=== PATIENT | male | born 1965 | race Caucasian/White ===

== ENCOUNTER 2016-08-25 17:24 | Inpatient (IN) | payer OTHER ==
[~2016-08-25] VITALS: Ht 193 cm; Wt 137.5 kg
[~2016-08-25 17:24] MED LIST: ANUCORT-HC25 MG PR; BENZONATATE100 MG PO; CENTRUM SILVER1 EAC3 PO; COLACE100 MG PO; IRON325 MG PO; LIBRIUM25 MG PO; METAMUCIL0.52 GM PO; NICOTINE PATCH1 EAC2 TD; PERMETHRIN60 GM TP
[2016-08-25 19:27] LABS: HEMATOCRIT 30.7 % (38.0-50.0); MCH 23.6 PG (29.0-34.0); MCHC 30.6 G/DL (30.0-36.0); MCV 76.9 FL (86-99); MEAN PLAT.VOLUME 9.9 uM^3 (9.0-12.4); PLATELET COUNT 219 K/uL (156-360); RBC DIS.WIDTH-CV 18.5 % (11.8-14.6); RBC DIS.WIDTH-SD 51.4 % (39-53); RED BLOOD COUNT 3.99 M/uL (4.00-5.50); WHITE BLOOD COUNT 5.3 K/uL (4.1-10.2)
[2016-08-25 19:36] LABS: CHLORIDE 105 mEq/L (99-109); POTASSIUM 3.7 mEq/L (3.7-5.4); SODIUM 142 mEq/L (136-147)
[2016-08-25 19:38] LABS: GLUCOSE 102 mg/dL (70-99)
[2016-08-25 19:39] LABS: ANION GAP 11 MEQ/L (2-14)
[2016-08-25 19:42] LABS: GFR ESTIMATE (CALCULATED) > 59 mL/min/
[2016-08-25 19:43] LABS: UREA NITROGEN (BUN) 11 mg/dL (9-23)
[2016-08-25 21:05] LABS: SERUM ETHYL ALCOHOL 110 mg/dL
[2016-08-26 08:04] LABS: HEMATOCRIT 33.7 % (38.0-50.0); MCH 23.2 PG (29.0-34.0); MCHC 30.6 G/DL (30.0-36.0); MCV 75.9 FL (86-99); MEAN PLAT.VOLUME 10.3 uM^3 (9.0-12.4); PLATELET COUNT 219 K/uL (156-360); RBC DIS.WIDTH-CV 18.2 % (11.8-14.6); RBC DIS.WIDTH-SD 50.1 % (39-53); RED BLOOD COUNT 4.44 M/uL (4.00-5.50); WHITE BLOOD COUNT 4.9 K/uL (4.1-10.2)
[2016-08-26 08:14] LABS: INTER. NORMALIZED RATIO 1.1; PROTHROMBIN TIME 11.1 (9.2-11.2); PTT 26.8 (25-32)
[2016-08-26 08:21] LABS: CHLORIDE 103 mEq/L (99-109); POTASSIUM 3.6 mEq/L (3.7-5.4); SODIUM 140 mEq/L (136-147)
[2016-08-26 08:23] LABS: GLUCOSE 111 mg/dL (70-99)
[2016-08-26 08:24] LABS: ANION GAP 10 MEQ/L (2-14)
[2016-08-26 08:25] LABS: TOTAL BILIRUBIN 0.7 mg/dL (0.0-1.0)
[2016-08-26 08:26] LABS: ALKALINE PHOSPHATASE 91 IU/L (3-129); GFR ESTIMATE (CALCULATED) > 59 mL/min/
[2016-08-26 08:28] LABS: UREA NITROGEN (BUN) 9 mg/dL (9-23)
[2016-08-26 14:54] VITALS: BP 158/115
[2016-08-26 20:00] VITALS: BP 134/97
[2016-08-27] VITALS: BP 143/88
[2016-08-27 04:00] VITALS: BP 133/73
[2016-08-27 07:09] LABS: HEMATOCRIT 34.3 % (38.0-50.0); MCH 23.2 PG (29.0-34.0); MCHC 30.6 G/DL (30.0-36.0); MCV 75.7 FL (86-99); MEAN PLAT.VOLUME 10.4 uM^3 (9.0-12.4); PLATELET COUNT 215 K/uL (156-360); RBC DIS.WIDTH-CV 17.3 % (11.8-14.6); RBC DIS.WIDTH-SD 47.6 % (39-53); RED BLOOD COUNT 4.53 M/uL (4.00-5.50); WHITE BLOOD COUNT 4.3 K/uL (4.1-10.2)
[2016-08-27 07:29] LABS: ANION GAP 10 MEQ/L (2-14); CHLORIDE 101 MEQ/L (99-109); GFR ESTIMATE (CALCULATED) > 59 mL/min/; GLUCOSE 100 mg/dL (70-99); MAGNESIUM 2.2 mg/dl (1.3-2.7); POTASSIUM 4.1 MEQ/L (3.7-5.4); SAMPLE HEMOLYSIS CHECK 0; SAMPLE ICTERIC CHECK 0; SAMPLE LIPEMIA CHECK 0; SODIUM 137 MEQ/L (136-147); UREA NITROGEN (BUN) 10 mg/dL (9-23)
[2016-08-27 08:09] VITALS: BP 142/95
[2016-08-27 12:13] VITALS: BP 130/97
[2016-08-27 16:11] VITALS: BP 128/88
[2016-08-27 19:59] VITALS: BP 124/92
[2016-08-27 22:30] LABS: INTERNAL CONTROL VALID? YES
[2016-08-28 00:43] VITALS: BP 123/83
[2016-08-28 03:53] VITALS: BP 134/88
[2016-08-28 07:48] VITALS: BP 128/80
[2016-08-28 12:47] VITALS: BP 129/84
[2016-08-28 20:19] VITALS: BP 123/90
[2016-08-29] VITALS: BP 134/96
[2016-08-29 08:02] VITALS: BP 131/94
[2016-08-29] MEDS ORDERED: CHLORDIAZEPOXID25 MG PO (09:39)
[2016-08-29] MEDS ORDERED: LIBRIUM25 MG PO (10:58)
[2016-08-29] MEDS ORDERED: ANUCORT-HC25 MG PR (11:07)
[2016-08-29] MEDS ORDERED: FOLIC ACID1 MG PO (11:07)
[2016-08-29] MEDS ORDERED: VITAMIN B-1100 MG PO (11:07)
[2016-08-29] MEDS ORDERED: LIDOCAINE700 MG TD (11:07)
[2016-08-29] MEDS ORDERED: PREPARATION H O28 GM PR (11:07)
[2016-08-29] MEDS ORDERED: NICOTINE PATCH1 EAC2 TD (11:07)
== END 2016-08-29 14:40 | disposition home or self-care (01) | DRG 897 ==
LOC: EME 17:24 → EDOF 08-26 04:03 → 5SOUTH 08-26 04:03
PROVIDERS: Internal Medicine
PROC: HZ2ZZZZ Detoxification Services for Substance Abuse Treatment (ICD-10-PCS; principal; 2016-08-26)
DX: F10.230 Alcohol dependence with withdrawal, uncomplicated (principal); Y90.5 Blood alcohol level of 100-119 mg/100 ml; K70.0 Alcoholic fatty liver; K64.8 Other hemorrhoids; D64.9 Anemia, unspecified; R00.0 Tachycardia, unspecified; E78.5 Hyperlipidemia, unspecified; I10 Essential (primary) hypertension; F32.9 Major depressive disorder, single episode, unspecified; F17.200 Nicotine dependence, unspecified, uncomplicated; G89.29 Other chronic pain; M54.5 Low back pain; J44.9 Chronic obstructive pulmonary disease, unspecified
CPT/HCPCS: 76705; 80048; 80053; 82272; 83735; 84100; 85027; 85610; 85730; 86900; 86901; 93005; 99281; 99285; G0480; J2060; J3411

== ENCOUNTER 2016-09-29 05:06 | Emergency (ER) | payer OTHER ==
[~2016-09-29] VITALS: Ht 193 cm; Wt 140.5 kg
[~2016-09-29 05:06] MED LIST changes: +CHLORDIAZEPOXID25 MG PO; +FOLIC ACID1 MG PO; +LIDOCAINE700 MG TD; +PREPARATION H O28 GM PR; +VITAMIN B-1100 MG PO
[2016-09-29 06:11] LABS: EOSINOPHIL (%) 3.7 % (0-5); EOSINOPHIL COUNT 0.2 K/uL (0-0.3); HEMATOCRIT 31.9 % (38.0-50.0); IMMATURE GRANULOCYTE (%) 0.2 % (0.0-0.7); LYMPHOCYTE COUNT 1.3 K/uL (1.0-2.8); MCH 22.7 PG (29.0-34.0); MCHC 29.8 G/DL (30.0-36.0); MCV 76.1 FL (86-99); MEAN PLAT.VOLUME 10.6 uM^3 (9.0-12.4); MONOCYTE (%) 13.2 % (3-12); MONOCYTE COUNT 0.5 K/uL (0-0.8); NEUTROPHIL (%) 49.9 % (45-76); PLATELET COUNT 199 K/uL (156-360); RBC DIS.WIDTH-CV 17.1 % (11.8-14.6); RBC DIS.WIDTH-SD 46.9 % (39-53); RED BLOOD COUNT 4.19 M/uL (4.00-5.50)
[2016-09-29 06:23] LABS: CHLORIDE 102 mEq/L (99-109); POTASSIUM 3.1 mEq/L (3.7-5.4); SODIUM 140 mEq/L (136-147)
[2016-09-29 06:24] LABS: GLUCOSE 117 mg/dL (70-99)
[2016-09-29 06:26] LABS: ANION GAP 12 MEQ/L (2-14)
[2016-09-29 06:28] LABS: GFR ESTIMATE (CALCULATED) > 59 mL/min/
[2016-09-29 06:29] LABS: UREA NITROGEN (BUN) 9 mg/dL (9-23)
[2016-09-29 06:33] LABS: TROP-I INTERPRETATION NEGATIVE; TROPONIN-I < 0.01 ng/mL (0.0-0.30)
[2016-09-29] MEDS ORDERED: LIBRIUM25 MG PO (07:26)
[2016-09-29 08:57] LABS: CREATINE KINASE 237 IU/L (1-294); TOTAL CK 237 IU/L (1-294)
[2016-09-29 09:04] LABS: TROP-I INTERPRETATION NEGATIVE; TROPONIN-I < 0.01 ng/mL (0.0-0.30)
[2016-09-29 09:08] LABS: CK-MB 1.7 ng/mL (0.0-4.9)
[2016-09-29 10:03] VITALS: BP 119/73
== END 2016-09-29 10:05 | disposition home or self-care (01) ==
LOC: EME 05:06
PROVIDERS: Emergency Medicine
DX: R07.89 Other chest pain (principal); F10.129 Alcohol abuse with intoxication, unspecified; E78.5 Hyperlipidemia, unspecified; I10 Essential (primary) hypertension; F17.200 Nicotine dependence, unspecified, uncomplicated
CPT/HCPCS: 71020; 80048; 82550 91; 82553; 84484; 85025; 93005; 94640; 99281; 99285

== ENCOUNTER 2017-01-27 13:11 | Emergency (ER) | payer OTHER ==
[~2017-01-27] VITALS: Ht 193 cm; Wt 139.3 kg
[2017-01-27] MEDS ORDERED: PEN-VEE K,VEET500 MG PO (15:43)
[2017-01-27 16:03] VITALS: BP 140/94
[2017-01-27] MEDS ORDERED: ULTRAM50 MG PO (16:35)
[2017-01-27] MEDS ORDERED: PERCOCET 5/31 TABLET PO (16:36)
== END 2017-01-27 16:31 | disposition home or self-care (01) ==
LOC: EME 13:11
DX: K02.9 Dental caries, unspecified (principal)
CPT/HCPCS: 99281; 99284

== ENCOUNTER 2017-02-20 00:09 | Emergency (ER) | payer OTHER ==
[~2017-02-20] VITALS: Ht 182.9 cm; Wt 143.3 kg
[~2017-02-20 00:09] MED LIST changes: +PEN-VEE K,VEET500 MG PO; +PERCOCET 5/31 TABLET PO; +ULTRAM50 MG PO
[2017-02-20 00:44] LABS: HEMATOCRIT 32.3 % (38.0-50.0); MCH 24.4 PG (29.0-34.0); PLATELET COUNT 212 K/uL (156-360); RBC DIS.WIDTH-CV 16.1 % (11.8-14.6); RBC DIS.WIDTH-SD 45.6 % (39-53); RED BLOOD COUNT 4.09 M/uL (4.00-5.50); WHITE BLOOD COUNT 4.7 K/uL (4.1-10.2)
[2017-02-20 00:54] LABS: CHLORIDE 102 mEq/L (99-109); POTASSIUM 3.5 mEq/L (3.7-5.4)
[2017-02-20 00:55] LABS: SODIUM 138 mEq/L (136-147)
[2017-02-20 00:56] LABS: GLUCOSE 132 mg/dL (70-99)
[2017-02-20 01:00] LABS: CREATININE 0.9 mg/dL (0.6-1.3); GFR ESTIMATE (CALCULATED) > 59 mL/min/ (58.99-99999); SERUM ETHYL ALCOHOL 335 mg/dL
[2017-02-20 01:01] LABS: UREA NITROGEN (BUN) 20 mg/dL (9-23)
[2017-02-20 01:33] LABS: SALICYLATE < 5.0 MG/DL (15-30)
[2017-02-20 01:34] LABS: ACETAMINOPHEN (TYLENOL) < 10 mcg/mL (10-30)
[2017-02-20 07:38] LABS: APPEARANCE CLEAR ((CLEAR)); BILIRUBIN NEGATIVE; BLOOD NEGATIVE; COLOR YELLOW ((YELLOW)); GLUCOSE (STRIP) NEGATIVE; KETONES NEGATIVE; LEUKOCYTES NEGATIVE; NITRITE NEGATIVE; PROTEIN (STRIP) NEGATIVE; SPECIFIC GRAVITY 1.014 (1.000-1.030); UCUL ADDED? NO; UROBILINOGEN 0.2 MG/DL (0.2-1.0)
[2017-02-20 07:54] LABS: AMPHETAMINE NEGATIVE (500 ng/mL); BARBITURATES NEGATIVE (200 ng/mL); BENZODIAZEPINES PRESUMPTIVE POSITIVE (150 ng/mL); BUPRENORPHINE NEGATIVE (10 ng/mL); COCAINE NEGATIVE (150 ng/mL); METHADONE NEGATIVE (200 ng/mL); METHAMPHETAMINE NEGATIVE (500 ng/mL); OPIATES (MORPHINE) NEGATIVE (100 ng/mL); OXYCODONE NEGATIVE (100 ng/mL); PHENCYCLIDINE NEGATIVE (25 ng/mL); PROPOXYPHENE NEGATIVE (300 ng/mL); THC CANNABINOIDS PRESUMPTIVE POSITIVE (50 ng/mL); TRICYCLIC ANTIDEPRESSANTS NEGATIVE (300 ng/mL)
[2017-02-20 08:32] LABS: BENZODIAZEPINES, URINE SCREEN POSITIVE (200 ng/mL)
[2017-02-20 12:40] VITALS: BP 146/83
== END 2017-02-20 13:21 | disposition home or self-care (01) ==
LOC: EME → EDBD 00:21 → EME 00:21
PROVIDERS: Emergency Medicine
DX: F10.229 Alcohol dependence with intoxication, unspecified (principal); Y90.8 Blood alcohol level of 240 mg/100 ml or more; F32.9 Major depressive disorder, single episode, unspecified; E78.5 Hyperlipidemia, unspecified; F41.9 Anxiety disorder, unspecified; I10 Essential (primary) hypertension; Z59.0 Homelessness
CPT/HCPCS: 80048; 81003; 84999; 85027; 90839; 99281; 99285; G0480; J2405

== ENCOUNTER 2017-04-03 21:25 | Emergency (ER) | payer OTHER ==
[~2017-04-03] VITALS: Ht 193 cm; Wt 143.1 kg
[2017-04-03 22:48] LABS: HEMATOCRIT 30.9 % (38.0-50.0); HEMOGLOBIN 9.4 G/DL (12.5-16.6); MCH 23.4 PG (29.0-34.0); MCHC 30.4 G/DL (30.0-36.0); MCV 77.1 FL (86-99); PLATELET COUNT 209 K/uL (156-360); RBC DIS.WIDTH-CV 16.1 % (11.8-14.6); RBC DIS.WIDTH-SD 45.2 % (39-53); RED BLOOD COUNT 4.01 M/uL (4.00-5.50); WHITE BLOOD COUNT 7.2 K/uL (4.1-10.2)
[2017-04-03 23:03] LABS: ALBUMIN 4.2 g/dL (3.2-4.8); CHLORIDE 99 mEq/L (99-109); POTASSIUM 4.2 mEq/L (3.7-5.4); SODIUM 134 mEq/L (136-147)
[2017-04-03 23:05] LABS: GLUCOSE 151 mg/dL (70-99); TOTAL PROTEIN 7.7 g/dL (6.4-8.3)
[2017-04-03 23:07] LABS: TOTAL BILIRUBIN 0.5 mg/dL (0.0-1.0)
[2017-04-03 23:08] LABS: SERUM ETHYL ALCOHOL 164 mg/dL
[2017-04-03 23:09] LABS: ALKALINE PHOSPHATASE 97 IU/L (3-129); CREATININE 1.9 mg/dL (0.6-1.3); GFR ESTIMATE (CALCULATED) 39 mL/min/ (58.99-99999)
[2017-04-03 23:10] LABS: AST (GOT) 203 IU/L (2-34); UREA NITROGEN (BUN) 22 mg/dL (9-23)
[2017-04-03 23:12] LABS: ALT (GPT) 141 IU/L (3-49)
[2017-04-04 01:54] LABS: GFR ESTIMATE (CALCULATED) > 59 mL/min/ (58.99-99999)
[2017-04-04 02:00] LABS: CREATININE 1.1 mg/dL (0.6-1.3)
[2017-04-04 03:01] VITALS: BP 146/88
== END 2017-04-04 03:23 | disposition home or self-care (01) ==
LOC: EME → EDBD 21:25 → EME 21:25
PROVIDERS: Nurse Practitioner Family
DX: F10.10 Alcohol abuse, uncomplicated (principal); E86.0 Dehydration; K92.1 Melena; D64.9 Anemia, unspecified; R74.0 Nonspecific elevation of levels of transaminase and lactic acid dehydrogenase [LDH]; K42.9 Umbilical hernia without obstruction or gangrene; Y90.6 Blood alcohol level of 120-199 mg/100 ml; F17.200 Nicotine dependence, unspecified, uncomplicated
CPT/HCPCS: 71045; 80053; 82565; 85027; 86850; 86900; 86901; 99281; 99285; G0480; J7030

== ENCOUNTER 2017-05-20 11:59 | Day surgery (SDC) | payer OTHER ==
[~2017-05-20] VITALS: Ht 190.5 cm; Wt 136.0 kg
[~2017-05-20 11:59] MED LIST changes: +CENTRUM ADULTS1 EACH PO
[2017-05-20 12:32] VITALS: BP 121/60
[2017-05-20 13:49] LABS: BASOPHIL (%) 0.5 % (0-1); EOSINOPHIL (%) 1.2 % (0-5); EOSINOPHIL COUNT 0.1 K/uL (0-0.3); HEMATOCRIT 30.6 % (38.0-50.0); HEMOGLOBIN 8.9 G/DL (12.5-16.6); IMMATURE GRANULOCYTE (%) 0.3 % (0.0-0.7); LYMPHOCYTE (%) 12.9 % (15-42); LYMPHOCYTE COUNT 0.8 K/uL (1.0-2.8); MCH 21.4 PG (29.0-34.0); MCHC 29.1 G/DL (30.0-36.0); MCV 73.6 FL (86-99); MONOCYTE (%) 11.7 % (3-12); MONOCYTE COUNT 0.7 K/uL (0-0.8); NEUTROPHIL (%) 73.4 % (45-76); NEUTROPHIL COUNT 4.3 K/uL (1.8-6.4); PLATELET COUNT 237 K/uL (156-360); RBC DIS.WIDTH-CV 17.2 % (11.8-14.6); RBC DIS.WIDTH-SD 44.9 % (39-53); RED BLOOD COUNT 4.16 M/uL (4.00-5.50); WHITE BLOOD COUNT 5.9 K/uL (4.1-10.2)
[2017-05-20 13:59] LABS: CHLORIDE 101 MEQ/L (99-109); CREATININE 0.9 MG/DL (0.6-1.3); GFR ESTIMATE (CALCULATED) > 59 mL/min/ (58.99-99999); GLUCOSE 116 mg/dL (70-99); POTASSIUM 3.9 MEQ/L (3.7-5.4); SERUM ETHYL ALCOHOL < 10 mg/dL; SODIUM 138 MEQ/L (136-147); UREA NITROGEN (BUN) 14 mg/dL (9-23)
[2017-05-20 14:32] LABS: BENZODIAZEPINES, URINE SCREEN Negative (200 ng/mL)
[2017-05-20] MEDS ORDERED: NORCO 5/3251 TABLET PO (20:25)
[2017-05-20 21:37] VITALS: BP 156/94
[2017-05-20 23:37] VITALS: BP 124/73
[2017-05-21 07:16] VITALS: BP 132/78
[2017-05-21 11:32] VITALS: BP 170/97
[2017-05-21 12:13] VITALS: BP 154/98
[2017-05-21 15:15] VITALS: BP 156/94
== END 2017-05-21 19:22 | disposition other institution (70) ==
LOC: SDC 11:59 → ENRESERV 20:26 → 2SOUTH 20:27 → 2EAST 20:27 → ENRESERV 20:52 → 2EAST 21:32
PROVIDERS: Anesthesiology; Surgery Plastic and Reconstructive Surgery
PROC: 0WUF4JZ Supplement Abdominal Wall with Synthetic Substitute, Percutaneous Endoscopic Approach (ICD-10-PCS; principal; 2017-05-20)
DX: K43.6 Other and unspecified ventral hernia with obstruction, without gangrene (principal); K42.9 Umbilical hernia without obstruction or gangrene; I10 Essential (primary) hypertension; E66.9 Obesity, unspecified; Z68.38 Body mass index [BMI] 38.0-38.9, adult; F17.210 Nicotine dependence, cigarettes, uncomplicated; Z59.0 Homelessness
CPT/HCPCS: 80048; 80306 90; 85025; 94799; C1781; G0378; G0480; J0131; J0690; J1100; J1170; J1885; J2001; J2250; J2405; J2710; J2795; J3475; J7120; S0020

== ENCOUNTER 2017-08-14 15:59 | Inpatient (IN) | payer OTHER ==
[2017-08-14] VITALS (9 sets, daily range): BP systolic 123–154; BP diastolic 80–99
[~2017-08-14] VITALS: Ht 193 cm; Wt 146.1 kg
[~2017-08-14 15:59] MED LIST changes: +NORCO 5/3251 TABLET PO
[2017-08-14 17:54] LABS: BASOPHIL (%) 0.4 % (0-1); EOSINOPHIL (%) 1.2 % (0-5); EOSINOPHIL COUNT 0.1 K/uL (0-0.3); HEMATOCRIT 24.8 % (38.0-50.0); HEMOGLOBIN 6.7 G/DL (12.5-16.6); IMMATURE GRANULOCYTE (%) 0.6 % (0.0-0.7); LYMPHOCYTE (%) 14.6 % (15-42); LYMPHOCYTE COUNT 1.2 K/uL (1.0-2.8); MCH 19.3 PG (29.0-34.0); MCV 71.3 FL (86-99); MONOCYTE (%) 13.1 % (3-12); MONOCYTE COUNT 1.1 K/uL (0-0.8); NEUTROPHIL (%) 70.1 % (45-76); NEUTROPHIL COUNT 5.7 K/uL (1.8-6.4); NRBC (%) 0.6 /100 WBC (0-0); PLATELET COUNT 269 K/uL (156-360); RBC DIS.WIDTH-CV 19.2 % (11.8-14.6); RBC DIS.WIDTH-SD 47.8 % (39-53); RED BLOOD COUNT 3.48 M/uL (4.00-5.50); WHITE BLOOD COUNT 8.2 K/uL (4.1-10.2)
[2017-08-14 17:56] LABS: ALBUMIN 4.1 g/dL (3.2-4.8); CHLORIDE 101 mEq/L (99-109); SODIUM 137 mEq/L (136-147)
[2017-08-14 17:58] LABS: GLUCOSE 95 mg/dL (70-99); TOTAL PROTEIN 7.4 g/dL (6.4-8.3)
[2017-08-14 18:00] LABS: TOTAL BILIRUBIN 0.6 mg/dL (0.0-1.0)
[2017-08-14 18:01] LABS: SERUM ETHYL ALCOHOL 60 mg/dL
[2017-08-14 18:02] LABS: ALKALINE PHOSPHATASE 87 IU/L (3-129); GFR ESTIMATE (CALCULATED) > 59 mL/min/ (58.99-99999)
[2017-08-14 18:03] LABS: AST (GOT) 118 IU/L (2-34); UREA NITROGEN (BUN) 11 mg/dL (9-23)
[2017-08-14 18:05] LABS: ALT (GPT) 119 IU/L (3-49); LIPASE 31 U/L (1.0-51.0)
[2017-08-14 18:07] LABS: TROP-I INTERPRETATION NEGATIVE; TROPONIN-I 0.03 ng/mL (0.0-0.30)
[2017-08-14 19:19] LABS: APPEARANCE SL.HAZY ((CLEAR)); BILIRUBIN NEGATIVE; BLOOD NEGATIVE; COLOR YELLOW ((YELLOW)); GLUCOSE (STRIP) NEGATIVE; KETONES NEGATIVE; LEUKOCYTES TRACE; NITRITE NEGATIVE; PROTEIN (STRIP) 30; UROBILINOGEN 0.2 MG/DL (0.2-1.0)
[2017-08-14 19:31] LABS: BACTERIA RARE /HPF; EPITHELIAL CELLS RARE /HPF; HYALINE CASTS 30-40 /LPF; MUCUS TRACE /LPF; RED BLOOD CELLS 0-5 /HPF (0-5); UCUL ADDED? YES
[2017-08-14 21:49] LABS: MAGNESIUM 2.1 mg/dL (1.3-2.7)
[2017-08-15] VITALS (10 sets, daily range): BP systolic 123–160; BP diastolic 75–102
[2017-08-15 00:52] LABS: HEMATOCRIT 26.6 % (38.0-50.0); HEMOGLOBIN 7.5 G/DL (12.5-16.6); MCV 73.1 FL (86-99)
[2017-08-15 01:24] LABS: TROP-I INTERPRETATION NEGATIVE; TROPONIN-I 0.07 ng/mL (0.0-0.30)
[2017-08-15 06:16] LABS: HEMATOCRIT 26.1 % (38.0-50.0); HEMOGLOBIN 7.1 G/DL (12.5-16.6); MCV 73.9 FL (86-99)
[2017-08-15 06:31] LABS: TROP-I INTERPRETATION NEGATIVE; TROPONIN-I 0.06 ng/mL (0.0-0.30)
[2017-08-15 06:39] LABS: CHLORIDE 100 MEQ/L (99-109); CREATININE 0.9 MG/DL (0.6-1.3); GFR ESTIMATE (CALCULATED) > 59 mL/min/ (58.99-99999); GLUCOSE 139 mg/dL (70-99); POTASSIUM 4.5 MEQ/L (3.7-5.4); SODIUM 136 MEQ/L (136-147); UREA NITROGEN (BUN) 9 mg/dL (9-23)
[2017-08-15 17:18] LABS: HEMOGLOBIN 7.5 G/DL (12.5-16.6); MCV 75.4 FL (86-99)
[2017-08-16 03:22] VITALS: BP 132/99
[2017-08-16 06:08] LABS: HEMATOCRIT 27.1 % (38.0-50.0); HEMOGLOBIN 7.5 G/DL (12.5-16.6); MCH 20.9 PG (29.0-34.0); MCHC 27.7 G/DL (30.0-36.0); MCV 75.7 FL (86-99); PLATELET COUNT 205 K/uL (156-360); RBC DIS.WIDTH-CV 20.1 % (11.8-14.6); RBC DIS.WIDTH-SD 55.1 % (39-53); RED BLOOD COUNT 3.58 M/uL (4.00-5.50); WHITE BLOOD COUNT 5.5 K/uL (4.1-10.2)
[2017-08-16 06:11] LABS: INTER. NORMALIZED RATIO 1.3
[2017-08-16 06:26] LABS: ALBUMIN 3.7 G/DL (3.2-4.8); ALKALINE PHOSPHATASE 65 IU/L (3-129); ALT (GPT) 102 IU/L (3-49); AST (GOT) 119 IU/L (2-34); CHLORIDE 102 MEQ/L (99-109); CREATININE 0.7 MG/DL (0.6-1.3); GFR ESTIMATE (CALCULATED) > 59 mL/min/ (58.99-99999); GLUCOSE 129 mg/dL (70-99); POTASSIUM 4.3 MEQ/L (3.7-5.4); SODIUM 136 MEQ/L (136-147); TOTAL BILIRUBIN 0.5 MG/DL (0.0-1.0); TOTAL PROTEIN 6.8 G/DL (6.4-8.3); UREA NITROGEN (BUN) 6 mg/dL (9-23)
[2017-08-16 07:05] VITALS: BP 178/89
[2017-08-16 15:00] VITALS: BP 143/88
[2017-08-17 00:51] VITALS: BP 136/90
[2017-08-17 05:01] VITALS: BP 131/92
[2017-08-17 06:01] LABS: CHLORIDE 98 MEQ/L (99-109); CREATININE 0.8 MG/DL (0.6-1.3); GFR ESTIMATE (CALCULATED) > 59 mL/min/ (58.99-99999); GLUCOSE 138 mg/dL (70-99); MAGNESIUM 1.9 mg/dl (1.3-2.7); POTASSIUM 3.9 MEQ/L (3.7-5.4); SODIUM 139 MEQ/L (136-147); UREA NITROGEN (BUN) 7 mg/dL (9-23)
[2017-08-17 06:24] LABS: BASOPHIL (%) 0.6 % (0-1); EOSINOPHIL (%) 3.4 % (0-5); EOSINOPHIL COUNT 0.2 K/uL (0-0.3); HEMATOCRIT 29.2 % (38.0-50.0); IMMATURE GRANULOCYTE (%) 0.6 % (0.0-0.7); LYMPHOCYTE (%) 13.7 % (15-42); LYMPHOCYTE COUNT 0.9 K/uL (1.0-2.8); MCH 20.6 PG (29.0-34.0); MCHC 27.4 G/DL (30.0-36.0); MCV 75.1 FL (86-99); MONOCYTE (%) 11.2 % (3-12); MONOCYTE COUNT 0.7 K/uL (0-0.8); NEUTROPHIL (%) 70.5 % (45-76); NEUTROPHIL COUNT 4.6 K/uL (1.8-6.4); PLATELET COUNT 224 K/uL (156-360); RBC DIS.WIDTH-CV 20.9 % (11.8-14.6); RBC DIS.WIDTH-SD 55.8 % (39-53); RED BLOOD COUNT 3.89 M/uL (4.00-5.50); WHITE BLOOD COUNT 6.5 K/uL (4.1-10.2)
[2017-08-17 07:56] VITALS: BP 136/81
[2017-08-17] MEDS ORDERED: PROTONIX40 MG PO (12:16)
[2017-08-17] MEDS ORDERED: CHLORDIAZEPOXID25 MG PO (12:16)
== END 2017-08-17 16:26 | disposition home or self-care (01) | DRG 378 ==
LOC: EME 15:59 → EDOF 20:44 → 5SOUTH 20:44 → ENRESERV 20:52 → 5SOUTH 22:20
PROVIDERS: Emergency Medicine; Hospitalist; Internal Medicine Gastroenterology; Physician Assistant
DX: K92.2 Gastrointestinal hemorrhage, unspecified (principal); D64.9 Anemia, unspecified; E78.5 Hyperlipidemia, unspecified; F10.20 Alcohol dependence, uncomplicated; G89.29 Other chronic pain; F17.200 Nicotine dependence, unspecified, uncomplicated; K76.0 Fatty (change of) liver, not elsewhere classified; G47.33 Obstructive sleep apnea (adult) (pediatric); E66.9 Obesity, unspecified; Z68.39 Body mass index [BMI] 39.0-39.9, adult; Z59.0 Homelessness; D62 Acute posthemorrhagic anemia; J44.9 Chronic obstructive pulmonary disease, unspecified; R09.02 Hypoxemia; D12.5 Benign neoplasm of sigmoid colon; K64.8 Other hemorrhoids
CPT/HCPCS: 71046; 80048; 80053; 81003; 83690; 83735; 84484; 85014; 85018; 85025; 85027; 85610; 86850; 86900; 86901; 86920; 87086; 93005; 94799; 99281; 99285; C9113; G0480; J2060; J2354; J2405; J3411; J7030; P9016

== ENCOUNTER 2017-09-27 20:55 | Inpatient (IN) | payer OTHER ==
[~2017-09-27] VITALS: Ht 193 cm; Wt 144.6 kg
[~2017-09-27 20:55] MED LIST changes: +PROTONIX40 MG PO
[2017-09-27 21:50] LABS: INTER. NORMALIZED RATIO 1.3
[2017-09-27 21:51] LABS: CHLORIDE 99 mEq/L (99-109); POTASSIUM 3.7 mEq/L (3.7-5.4); SODIUM 133 mEq/L (136-147)
[2017-09-27 21:52] LABS: ALBUMIN 4.1 g/dL (3.2-4.8); MAGNESIUM 2.4 mg/dL (1.3-2.7)
[2017-09-27 21:54] LABS: BASOPHIL (%) 0.5 % (0-1); EOSINOPHIL (%) 2.1 % (0-5); EOSINOPHIL COUNT 0.1 K/uL (0-0.3); GLUCOSE 125 mg/dL (70-99); HEMATOCRIT 22.6 % (38.0-50.0); IMMATURE GRANULOCYTE (%) 0.4 % (0.0-0.7); LYMPHOCYTE (%) 19.5 % (15-42); LYMPHOCYTE COUNT 1.1 K/uL (1.0-2.8); MCH 20.4 PG (29.0-34.0); MCHC 28.8 G/DL (30.0-36.0); MCV 71.1 FL (86-99); MONOCYTE (%) 11.4 % (3-12); MONOCYTE COUNT 0.7 K/uL (0-0.8); NEUTROPHIL (%) 66.1 % (45-76); NEUTROPHIL COUNT 3.8 K/uL (1.8-6.4); NRBC (%) 0.5 /100 WBC (0-0); PLATELET COUNT 259 K/uL (156-360); RBC DIS.WIDTH-CV 20.5 % (11.8-14.6); RBC DIS.WIDTH-SD 52.4 % (39-53); RED BLOOD COUNT 3.18 M/uL (4.00-5.50); TOTAL PROTEIN 7.2 g/dL (6.4-8.3); WHITE BLOOD COUNT 5.7 K/uL (4.1-10.2)
[2017-09-27 21:56] LABS: HEMOGLOBIN 6.5 G/DL (12.5-16.6); TOTAL BILIRUBIN 0.6 mg/dL (0.0-1.0)
[2017-09-27 21:57] LABS: SERUM ETHYL ALCOHOL 126 mg/dL
[2017-09-27 21:58] LABS: ALKALINE PHOSPHATASE 95 IU/L (3-129); GFR ESTIMATE (CALCULATED) > 59 mL/min/ (58.99-99999)
[2017-09-27 21:59] LABS: AST (GOT) 102 IU/L (2-34); UREA NITROGEN (BUN) 16 mg/dL (9-23)
[2017-09-27 22:00] LABS: DIRECT BILIRUBIN 0.3 mg/dL (0.0-0.3)
[2017-09-27 22:01] LABS: ALT (GPT) 105 IU/L (3-49); LIPASE 22 U/L (1.0-51.0)
[2017-09-27] MEDS ORDERED: HYDROCODON-ACE1 EAC7 PO (23:01)
[2017-09-27 23:02] VITALS: BP 121/82
[2017-09-27 23:16] VITALS: BP 105/74
[2017-09-27 23:46] VITALS: BP 112/73
[2017-09-28] VITALS (10 sets, daily range): BP systolic 126–137; BP diastolic 69–86
[2017-09-28 08:41] LABS: HEMATOCRIT 27.9 % (38.0-50.0); HEMOGLOBIN 8.1 G/DL (12.5-16.6); MCV 74.2 FL (86-99)
[2017-09-28 08:48] LABS: CHLORIDE 103 mEq/L (99-109); SODIUM 136 mEq/L (136-147)
[2017-09-28 08:50] LABS: POTASSIUM 4.8 mEq/L (3.7-5.4)
[2017-09-28 08:51] LABS: GLUCOSE 138 mg/dL (70-99)
[2017-09-28 08:53] LABS: TOTAL BILIRUBIN 0.9 mg/dL (0.0-1.0)
[2017-09-28 08:54] LABS: ALKALINE PHOSPHATASE 96 IU/L (3-129); CREATININE 0.8 mg/dL (0.6-1.3); GFR ESTIMATE (CALCULATED) > 59 mL/min/ (58.99-99999)
[2017-09-28 08:55] LABS: UREA NITROGEN (BUN) 10 mg/dL (9-23)
[2017-09-28 08:56] LABS: AST (GOT) 81 IU/L (2-34)
[2017-09-28 08:57] LABS: ALT (GPT) 98 IU/L (3-49)
[2017-09-28 14:12] LABS: HEMATOCRIT 28.1 % (38.0-50.0); HEMOGLOBIN 8.1 G/DL (12.5-16.6); MCV 74.5 FL (86-99)
[2017-09-28 18:17] LABS: HEMATOCRIT 28.2 % (38.0-50.0); HEMOGLOBIN 7.9 G/DL (12.5-16.6)
[2017-09-29] VITALS (13 sets, daily range): BP systolic 129–168; BP diastolic 67–104
[2017-09-29 00:47] LABS: HEMATOCRIT 26.3 % (38.0-50.0); HEMOGLOBIN 7.4 G/DL (12.5-16.6); MCV 74.7 FL (86-99)
[2017-09-29 10:11] LABS: HEMATOCRIT 26.7 % (38.0-50.0); HEMOGLOBIN 7.3 G/DL (12.5-16.6); MCH 21.2 PG (29.0-34.0); MCHC 27.3 G/DL (30.0-36.0); MCV 77.6 FL (86-99); PLATELET COUNT 228 K/uL (156-360); RBC DIS.WIDTH-CV 20.9 % (11.8-14.6); RBC DIS.WIDTH-SD 58.7 % (39-53); RED BLOOD COUNT 3.44 M/uL (4.00-5.50); WHITE BLOOD COUNT 5.3 K/uL (4.1-10.2)
[2017-09-29 10:17] LABS: ALBUMIN 3.7 G/DL (3.2-4.8); ALKALINE PHOSPHATASE 75 IU/L (3-129); ALT (GPT) 72 IU/L (3-49); AST (GOT) 64 IU/L (2-34); CHLORIDE 101 MEQ/L (99-109); CREATININE 0.7 MG/DL (0.6-1.3); GFR ESTIMATE (CALCULATED) > 59 mL/min/ (58.99-99999); GLUCOSE 174 mg/dL (70-99); POTASSIUM 4.3 MEQ/L (3.7-5.4); SODIUM 136 MEQ/L (136-147); TOTAL BILIRUBIN 0.4 MG/DL (0.0-1.0); TOTAL PROTEIN 6.2 G/DL (6.4-8.3); UREA NITROGEN (BUN) 8 mg/dL (9-23)
== END 2017-09-29 23:20 | disposition left against medical advice (07) | DRG 394 ==
LOC: EME → EDBD 20:55 → EDOF 09-28 00:05 → 5EAST 09-28 00:05
PROVIDERS: Emergency Medicine; Hospitalist
PROC: 30233N1 Transfusion of Nonautologous Red Blood Cells into Peripheral Vein, Percutaneous Approach (ICD-10-PCS; principal; 2017-09-28)
DX: K64.8 Other hemorrhoids (principal); I86.8 Varicose veins of other specified sites; D62 Acute posthemorrhagic anemia; K70.10 Alcoholic hepatitis without ascites; F10.20 Alcohol dependence, uncomplicated; Y90.6 Blood alcohol level of 120-199 mg/100 ml; K76.0 Fatty (change of) liver, not elsewhere classified; J44.9 Chronic obstructive pulmonary disease, unspecified; I10 Essential (primary) hypertension; E66.01 Morbid (severe) obesity due to excess calories; Z68.38 Body mass index [BMI] 38.0-38.9, adult; E78.5 Hyperlipidemia, unspecified; B35.1 Tinea unguium; F32.9 Major depressive disorder, single episode, unspecified; F41.9 Anxiety disorder, unspecified; M54.9 Dorsalgia, unspecified; G89.29 Other chronic pain; F17.200 Nicotine dependence, unspecified, uncomplicated; F12.90 Cannabis use, unspecified, uncomplicated; Z53.29 Procedure and treatment not carried out because of patient's decision for other reasons; Z98.890 Other specified postprocedural states; Z59.0 Homelessness; Z56.0 Unemployment, unspecified; Z80.0 Family history of malignant neoplasm of digestive organs; Z82.49 Family history of ischemic heart disease and other diseases of the circulatory system
CPT/HCPCS: 71046; 74176; 80048; 80053; 80076; 82948; 83690; 83735; 85014; 85018; 85025; 85027; 85610; 86850; 86900; 86901; 86920; 94640; 94760; 94799; 99281; 99285; C9113; G0480; J2060; J2354; J2405; J3411; J7030; J7050; P9016

== ENCOUNTER → 2017-10-02 | Outpatient (CLI) | payer OTHER ==
[~2017-10-02] VITALS: Ht 193 cm; Wt 144.8 kg
[~2017-10-02] MED LIST changes: +HYDROCODON-ACE1 EAC7 PO
[2017-10-02 12:58] LABS: HEMATOCRIT 29.4 % (38.0-50.0); HEMOGLOBIN 8.8 G/DL (12.5-16.6)
== END | disposition home or self-care (01) ==
LOC: AMB 10:30
PROVIDERS: Anesthesiology
PROC: 0DJD8ZZ Inspection of Lower Intestinal Tract, Via Natural or Artificial Opening Endoscopic (ICD-10-PCS; principal; 2017-10-02)
DX: K64.8 Other hemorrhoids (principal); D64.9 Anemia, unspecified
CPT/HCPCS: 85014; 85018